=== PATIENT | male | born 1990 | race Caucasian/White ===

== ENCOUNTER 2017-05-27 08:22 | Emergency (ER) | payer MEDICAID ==
[2017-05-27] MEDS: IBUPROFEN 600 MG TAB PO (08:40)
[2017-05-27] MEDS: LIDOCAINE 1% (MDV) 20 ML INJ SC (09:26)
[2017-05-27] MEDS: CEFTRIAXONE 1 GM INJ IM (09:27)
== END 2017-05-27 09:43 | disposition home or self-care (01) ==
LOC: FTE 08:22
DX: J18.9 Pneumonia, unspecified organism (principal)
CPT/HCPCS: 71045; 96372; 99284-25